=== PATIENT | male | born 1965 | race Caucasian/White ===

== ENCOUNTER 2016-12-09 13:00 | Outpatient (RCR) | payer BC | END 2016-12-10 | disposition home or self-care (01) | LOC: PTY 13:00 | DX: M54.5 Low back pain (principal) ==

== ENCOUNTER 2017-01-06 13:45 | Outpatient (RCR) | payer BC | END 2017-01-10 | disposition home or self-care (01) | LOC: PTY 13:45 | DX: M54.5 Low back pain (principal); G89.29 Other chronic pain | CPT/HCPCS: 97110; 97140; G0283 ==